=== PATIENT | female | born 1960 | race Caucasian/White ===

== ENCOUNTER 2018-07-16 11:45 | Outpatient (CLI) | payer SELFPAY ==
[~2018-07-16] VITALS: Ht 157.5 cm; Wt 109.3 kg
[2018-07-16] MEDS ORDERED: NAPR-915 PO (16:40)
[2018-07-16] MEDS ORDERED: [UNRECOGNIZED DRUG - OTHER] PO (16:40)
[2018-07-16] MEDS ORDERED: ZOLP10TA PO (16:40)
[2018-07-16] MEDS ORDERED: BACL10TA PO (16:40)
== END 2018-07-16 16:50 | disposition home or self-care (01) ==
LOC: PREOP 11:45
PROVIDERS: ATTEND Obstetrics & Gynecology
DX: Z01.818 Encounter for other preprocedural examination (principal)

== ENCOUNTER 2018-07-18 07:31 | Day surgery (SDC) | payer BC ==
[~2018-07-18] VITALS: Ht 157.5 cm; Wt 109.3 kg
[~2018-07-18 07:31] MED LIST: BACL10TA PO; NAPR-915 PO; ZOLP10TA PO; [UNRECOGNIZED DRUG - OTHER] PO
[2018-07-18 08:00] VITALS: BP 139/78
[2018-07-18] MEDS ORDERED: BUPIVACAINE 0.25% 30 ML (SENSORCAINE) VIAL ONE (08:23)
[2018-07-18] MEDS ORDERED: LACTATED RINGERS 1,000 ML IV PRN (08:32)
[2018-07-18] MEDS ORDERED: ONDANSETRON 4 MG/2 ML (SDV) Z0FRAN ONE (08:33)
[2018-07-18] MEDS ORDERED: LIDOCAINE PF 2% 5 ML (XYLOCAINE) VIAL ONE (08:33)
[2018-07-18] MEDS ORDERED: SEVOFLURANE (ULTANE) 15 ML INHAL SOLN ONE ×3 (08:33→09:33)
[2018-07-18] MEDS ORDERED: proPOfol 200 MG/20 ML (DIPRIVAN) VIAL IV ONE (08:33)
[2018-07-18] MEDS ORDERED: DEXAMETHASONE 10 MG/ML (DECADRON) 1 ML VIAL ONE (08:33)
[2018-07-18] MEDS ORDERED: fentaNYL INJECTION 100 MCG/2 ML AMP ONE (08:34)
[2018-07-18] MEDS ORDERED: MIDAZOLAM 2 MG/2 ML (VERSED) VIAL ONE (08:34)
[2018-07-18 08:41] LABS: BASOPHILS % (AUTO) 0 % (0-10); EOSINOPHILS # (AUTO) 0.3 10^3/uL (0.0-0.3); EOSINOPHILS % (AUTO) 3 % (0-10); HEMATOCRIT 37 % (35-52); HEMOGLOBIN 12.5 G/DL (11.5-16.0); LYMPHOCYTES # (AUTO) 3.7 X 10^3 (1.0-4.0); LYMPHOCYTES % (AUTO) 34 % (12-44); MEAN CORPUSCULAR HEMOGLOBIN 31 PG (25-34); MEAN CORPUSCULAR HGB CONC 34 G/DL (32-36); MEAN CORPUSCULAR VOLUME 94 FL (80-99); MEAN PLATELET VOLUME 9.7 FL (7.4-10.4); MONOCYTES % (AUTO) 9 % (0-12); NEUTROPHILS # (AUTO) 5.8 X 10^3 (1.8-7.8); NEUTROPHILS % (AUTO) 54 % (42-75); PLATELET COUNT 263 10^3/uL (130-400); RED BLOOD COUNT 3.98 10^6/uL (4.35-5.85); WHITE BLOOD COUNT 10.9 10^3/uL (4.3-11.0)
--- NOTE | 2018-07-18 08:49 | History & Physical-Surgical ---
HPO-Surgical History of Present Illness Chief Complaint: PMB Diagnosis/Surgical Indication: PMB Procedure: D&C Date of Surgery: Jul 18, 2018 Weight (Pounds): 241 Weight (Ounces): 0.0 Height (Feet): 5 Height (Inches): 2.00 Allergies and Home Medications Allergies Coded Allergies: No Known Drug Allergies (Unverified , 07/16/18) Home Medications Baclofen 10 Mg Tablet, 10 MG PO HS, (Reported) Naproxen 500 Mg Tablet, 500 MG PO HS, (Reported) Zolpidem Tartrate 10 Mg Tablet, 10 MG PO HS PRN for SLEEP, (Reported) [[employer]] , 2 TAB PO BID, (Reported) Patient Home Medication List Home Medication List Reviewed: Yes Past Stetufi-Zumaty-Nmqcqj Hx Patient Social History Type Used: Electronic/Vapor Recent Foreign Travel: No Contact w/other who traveled: No Recent Hopitalizations: No Seasonal Allergies Seasonal Allergies: No Surgeries Tonsillectomy, Tubal Ligation Reproductive System Hx Reproductive Disorders: No Musculoskeletal Arthritis Exam Vital Signs Capillary Refill : Labs Laboratory Tests Test 07/18/18 08:30 Range/Units White Blood Count 10.9 4.3-11.0 10^3/uL Red Blood Count 3.98 L 4.35-5.85 10^6/uL Hemoglobin 12.5 11.5-16.0 G/DL Hematocrit 37 35-52 % Mean Corpuscular Volume 94 80-99 FL Mean Corpuscular Hemoglobin 31 25-34 PG Mean Corpuscular Hemoglobin Concent 34 32-36 G/DL Red Cell Distribution Width 13.0 10.0-14.5 % Platelet Count 263 130-400 10^3/uL Mean Platelet Volume 9.7 7.4-10.4 FL Neutrophils (%) (Auto) 54 42-75 % Lymphocytes (%) (Auto) 34 12-44 % Monocytes (%) (Auto) 9 0-12 % Eosinophils (%) (Auto) 3 0-10 % Basophils (%) (Auto) 0 0-10 % Neutrophils # (Auto) 5.8 1.8-7.8 X 10^3 Lymphocytes # (Auto) 3.7 1.0-4.0 X 10^3 Monocytes # (Auto) 1.0 0.0-1.0 X 10^3 Eosinophils # (Auto) 0.3 0.0-0.3 10^3/uL Basophils # (Auto) 0.0 0.0-0.1 10^3/uL General Appearance: Alert, Oriented X3 HEENT: Atraumatic Assessment/Plan Assessment and Plan Diagnosis 57 yo with PMB BMI 44 Plan: D and C Admission Diagnosis 57 yo with PMB BMI 44 Admission Status: Observation MARY KATE HESTER DO Jul 18, 2018 8:49 am
[2018-07-18] MEDS ORDERED: D5 LR IV SOLUTION 1,000 ML IV SCH (09:19)
--- NOTE | 2018-07-18 09:21 | Discharge Inst-Women's Service ---
Discharge Inst-Women's Serv Depart Medication/Instructions New, Converted or Re-Newed RX: RX on Chart Consults/Follow Up Additional Follow Up: Yes Orders/Referrals Dr. Hester in 2 weeks Activity Activity: Activity as Tolerated Driving Instructions: No Driving for 1 Week NO SMOKING: NO SMOKING Nothing Inside Vagina: No Douching, No Brogan, No Tampons Diet Discharge Diet: No Restrictions Symptoms to Report to : Bleeding Excessive, Pain Increased, Fever Over 101 Degrees F, Vaginal Bleeding Increase, Questions/Concerns For Any Problems or Questions: Contact Your Physician MARY KATE HESTER DO Jul 18, 2018 09:21
[2018-07-18] MEDS ORDERED: ONDANSETRON 4 MG/2 ML (SDV) Z0FRAN IVP PRN ×2 (09:30→09:45)
[2018-07-18] MEDS ORDERED: KETOROLAC 30 MG/ML VIAL IVP ONE ×2 (09:30→09:45)
[2018-07-18] MEDS ORDERED: morphine INJ 10 MG/ML 1ML (SYR OR VIAL) IVP ONE (09:45)
[2018-07-18] MEDS ORDERED: MEPERIDINE (DEMEROL) INJ 50 MG/ML IVP ONE (09:45)
[2018-07-18] MEDS ORDERED: PROMETHAZINE INJ 25 MG/ML (PHENERGAN) AMP IVP ONE (09:45)
[2018-07-18 10:35] VITALS: BP 124/70
[2018-07-18] MEDS ORDERED: ACETAMINOPHEN 500 MG TAB (TYLENOL) ONE (10:39)
[2018-07-18] MEDS ORDERED: ACETAMINOPHEN 500 MG TAB (TYLENOL) PO ONE (11:00)
[2018-07-18 11:05] VITALS: BP 128/90
--- NOTE | 2018-07-18 13:36 | Anesthesia-General Post-Op ---
General Patient Condition Mental Status/LOC: Same as Preop Cardiovascular: Satisfactory Nausea/Vomiting: Absent Respiratory: Satisfactory Pain: Controlled Complications: Absent Post Op Complications Complications None Follow Up Care/Instructions Patient Instructions None needed. Anesthesia/Patient Condition Patient Condition Patient is doing well, no complaints, stable vital signs, no apparent adverse anesthesia problems. No complications reported per nursing. GABBY QUEVEDO CRNA Jul 18, 2018 13:36
--- NOTE | 2018-07-18 14:38 | OPERATIVE REPORT ---
DATE OF SERVICE: 07/18/2018 PREOPERATIVE DIAGNOSIS: A 57-year-old female with postmenopausal bleeding. POSTOPERATIVE DIAGNOSIS: A 57-year-old female with postmenopausal bleeding. PROCEDURE: D and C. SURGEON: Mary Kate Hester DO ANESTHESIA: LMA general. ESTIMATED BLOOD LOSS: Minimal. URINE OUTPUT: Not recorded. FLUIDS: 600 mL of lactated Ringer solution. FINDINGS: Grossly normal appearing external female genitalia with age appropriate vaginal atrophy. No adnexal masses or fullness on bimanual examination. Normal appearing size of uterus on bimanual examination and a rather large endometrial polyp on D and C curetting. SPECIMENS SENT: Endometrial curettings. INDICATIONS FOR THE PROCEDURE: This is a 57-year-old female patient, who has a consultation in my office for postmenopausal bleeding. We attempted to obtain an endometrial biopsy in the office and were unable to do so due to her postmenopausal bleeding and as well as her risk factor of a BMI of 44. I discussed with the patient proceeding with D and C as an endometrial sample was detrimental to determining her long-term risk for endometrial carcinoma. Risks of the procedure were discussed with the patient in detail including the risk of bleeding, infection, damage to surrounding structures including, but not limited to the ureters itself, damage to the vagina, postoperative expectations and recovery time have been all discussed. After all the questions were answered, consent was obtained and the patient was taken to the operating room. OPERATIVE REPORT IN DETAIL: Once in the operating room, general anesthesia was found to be adequate. She was placed in dorsal lithotomy position, prepped and draped in normal sterile fashion. The bladder was first drained using straight catheterization. Bimanual examination was performed, see my findings above. A weighted speculum was inserted in the patient's vagina. Right angle retractor was used to visualize the cervix, which was grasped at 12 o'clock position using a single tooth tenaculum. A paracervical block was performed at 3 and 9 o'clock positions using 0.25% Marcaine, 5 mL was injected at each injection site. Care was taken to aspirate before injecting. I then gently sound the uterine cavity, depth was found to be 8 cm. I then gently dilated the cervix using Hegar dilators to maximum dilatation approximately 5 mm, at which point, I am able to introduce a small endometrial curetting and the curettings were collected. A large polyp is expressed at that point and all this tissue was sent as endometrial curettings. I then deemed the procedure complete. The tenaculum was removed and there was bleeding from the tenaculum sites, which were made hemostatic using silver nitrate. Lap and sponge counts were correct at the end of the procedure and instrument count was correct as well. Instruments were removed from the patient's vagina. Job ID: [id number] DocumentID: [id number] Dictated Date: 07/18/2018 10:02:22 Opening Machine Cleaner Date: 07/18/2018 14:37:23 Dictated By: MARY KATE HESTER DO
== END 2018-07-18 11:15 | disposition home or self-care (01) ==
LOC: SDC 07:31
PROVIDERS: ATTEND Obstetrics & Gynecology
DX: N95.0 Postmenopausal bleeding (principal); J40 Bronchitis, not specified as acute or chronic; F17.290 Nicotine dependence, other tobacco product, uncomplicated; E66.01 Morbid (severe) obesity due to excess calories; Z68.41 Body mass index [BMI] 40.0-44.9, adult
CPT/HCPCS: 36415; 85025; 86850; 86900; 86901; 87081; 94664